=== PATIENT | male | born 1960 | race Two or more races ===

== ENCOUNTER 2018-11-28 05:00 | Day surgery (SDC) | payer OTHER ==
[2018-11-28] MEDS ORDERED: CEFAZOLIN 1 GM VIAL IV ONE (05:01)
[2018-11-28] MEDS ORDERED: LIDOCAINE HCL/PF 1% 30 ML SDV ONE (06:09)
[2018-11-28] MEDS ORDERED: methylPREDNISolone ACETATE 80 MG/ML VIAL ONE (06:09)
[2018-11-28] MEDS ORDERED: EPINEPHRINE (1:1000) 1 MG/ML AMPUL ONE (06:17)
[2018-11-28] MEDS ORDERED: HYDROMORPHONE INJ 2 MG/ML DISP.SYRIN ONE (06:52)
[2018-11-28] MEDS ORDERED: BUPIVACAINE 0.5 % PF 150 MG/30 ML VIAL ONE (06:52)
[2018-11-28] MEDS ORDERED: MIDAZOLAM HCL 2 MG/2ML VIAL ONE (06:52)
[2018-11-28] MEDS ORDERED: ROCURONIUM BROMIDE 50 MG/5 ML ONE (06:52)
== END 2018-11-28 09:15 | disposition home or self-care (01) ==
LOC: DS 05:00
PROVIDERS: ATTEND Specialist
DX: M75.41 Impingement syndrome of right shoulder (principal); M19.011 Primary osteoarthritis, right shoulder; G89.29 Other chronic pain; Z79.899 Other long term (current) drug therapy
CPT/HCPCS: 29826; 29827; A4217; A6253; A6402; J0171; J0690 ×2; J1100; J1170; J1885; J2250; J2405; J2704; J2710; J3490 ×3; 88304-TC; 88311-TC; J1040

== ENCOUNTER 2020-06-09 07:22 | Outpatient (CLI) | payer OTHER ==
[2020-06-15] MEDS ORDERED: CARI350T PO (10:27)
[2020-06-15] MEDS ORDERED: GABA600T12 PO (10:27)
[2020-06-15] MEDS ORDERED: ZOLP10TA2 PO (10:27)
[2020-06-15] MEDS ORDERED: HYDR-4384 PO (10:27)
== END 2020-06-09 23:59 | disposition home or self-care (01) ==
DX: Z01.812 Encounter for preprocedural laboratory examination (principal); Z20.828 Contact with and (suspected) exposure to other viral communicable diseases
CPT/HCPCS: 87426; C9803